=== PATIENT | male | born 1960 | race African-American/Black ===

== ENCOUNTER 2018-10-31 05:31 | Inpatient (IN) | payer MEDICAID, OTHER ==
[~2018-10-31] VITALS: Ht 170.2 cm; Wt 93.6 kg
[2018-10-31] VITALS (52 sets, daily range): BP systolic 100–152; BP diastolic 40–90
[~2018-10-31 05:31] MED LIST: LACTATED RINGERS 1,000 ML IV SCH
[2018-10-31] MEDS ORDERED: LISI40TA4 PO (05:32)
[2018-10-31] MEDS ORDERED: HYDR25TA PO (05:32)
[2018-10-31] MEDS ORDERED: OMEP20TA2 PO (05:32)
[2018-10-31] MEDS ORDERED: LIP40 PO (05:32)
[2018-10-31] MEDS ORDERED: AMLO10TA80 PO (05:32)
[2018-10-31] MEDS ORDERED: MELO-104 PO (05:32)
[2018-10-31] MEDS ORDERED: LIDOCAINE HCL 1% 20ML VIAL (Pyxis) INJ ONE (06:41)
[2018-10-31] MEDS ORDERED: GELATIN SPONGE,ABSORBABLE 12-7MM SPONGE ONE (06:41)
[2018-10-31] MEDS ORDERED: THROMBIN (BOVINE) 5000 UNITS/VIAL TOP ONE (06:42)
[2018-10-31] MEDS ORDERED: BACITRACIN 50,000 UNITS/VIAL ONE (06:42)
[2018-10-31] MEDS ORDERED: LIDOCAINE HCL/EPINEPHRINE 1%-EPI 1:100,000 20 ML VIAL ONE (06:45)
[2018-10-31] MEDS ORDERED: HYDROMORPHONE HCL/PF 2MG/ML (OR) ONE (06:52)
[2018-10-31] MEDS ORDERED: PROPOFOL 200MG/20ML VIAL IV ONE (06:52)
[2018-10-31] MEDS ORDERED: MIDAZOLAM HCL 2 MG/2 ML VIAL ONE (06:52)
[2018-10-31] MEDS ORDERED: FENTANYL CITRATE/PF 50MCG/ML 5ML VIAL ONE (06:52)
[2018-10-31] MEDS ORDERED: ROCURONIUM BROMIDE 10MG/ML VIAL 5ML IV ONE ×2 (06:52→08:09)
[2018-10-31] MEDS ORDERED: ONDANSETRON HCL 4MG/2ML INJ IV PRN (07:15)
[2018-10-31] MEDS ORDERED: DEXAMETHASONE 4MG/ML 1ML VIAL ONE (08:05)
[2018-10-31] MEDS ORDERED: CEFAZOLIN SODIUM 1000MG/VIAL ONE (08:05)
[2018-10-31] MEDS ORDERED: NEOSTIGMINE METHYLSULFATE 1MG/ML 10 ML VIAL ONE (09:07)
[2018-10-31] MEDS ORDERED: GLYCOPYRROLATE 0.2 MG/ML 2ML VIAL ONE (09:07)
[2018-10-31] MEDS ORDERED: HYDROMORPHONE HCL/PF 2MG/ML CPJ IV PRN (09:45)
[2018-10-31] MEDS ORDERED: ONDANSETRON INJ IV PRN (10:15)
[2018-10-31] MEDS ORDERED: NALOXONE INJ IV PRN (10:15)
[2018-10-31] MEDS: HYDROMORPHONE PCA 10MG/50ML IV PRN (10:28)
[2018-10-31] MEDS: DEXT 5%/LACTATED RINGERS 1,000 ML IV SCH ×2 (10:35→20:49)
[2018-10-31] MEDS: NICARDIPINE 100 MG in SODIUM CHLORIDE 0.9% 60 ML IV PRN (10:54)
[2018-10-31] MEDS: PANTOPRAZOLE SODIUM 40 MG/VIAL IV SCH (12:13)
[2018-10-31] MEDS: DEXAMETHASONE 4MG/ML 1ML VIAL IV SCH ×3 (12:13→23:19)
[2018-10-31] MEDS: DIPHENHYDRAMINE INJ IV PRN ×2 (12:13→22:38)
[2018-10-31] MEDS ORDERED: CEFAZOLIN SODIUM 1000MG/VIAL IV SCH (14:00)
[2018-10-31] MEDS: CEFAZOLIN 1000MG PREMIX 50 ML IV SCH ×2 (14:12→22:01)
[2018-10-31] MEDS ORDERED: IPRATROPIUM/ALBUTEROL 0.5-3(2.5)MG/3ML NEB HHN PRN (18:45)
[2018-10-31] MEDS: ATORVASTATIN CALCIUM 40MG TABLET PO SCH (20:49)
[2018-11-01] VITALS (84 sets, daily range): BP systolic 77–158; BP diastolic 32–95
[2018-11-01] MEDS: HYDROMORPHONE PCA 10MG/50ML IV PRN (05:25)
[2018-11-01] MEDS: DEXAMETHASONE 4MG/ML 1ML VIAL IV SCH ×4 (05:40→23:13)
[2018-11-01] MEDS: CEFAZOLIN 1000MG PREMIX 50 ML IV SCH (05:40)
[2018-11-01 06:36] LABS: HEMATOCRIT. 45.2 % (42.0-52.0); HEMOGLOBIN. 14.6 g/dL (14.0-18.0); MEAN CORPUSCULAR HEMOGLOBIN 28.9 pg (28.0-32.0); MEAN CORPUSCULAR VOLUME 89.5 fL (80.0-94.0); MEAN PLATELET VOLUME 9.3 fl (7.4-10.4); PLATELET 204 x1000/uL (130-400); RED BLOOD CELL COUNT 5.05 mill/uL (4.7-6.1); RED CELL DISTRIBUTION WIDTH 14.8 % (11.6-14.6)
[2018-11-01 06:46] LABS: CHLORIDE 103 mEq/L (98-107)
[2018-11-01 06:52] LABS: PHOSPHORUS 3.3 mg/dL (2.5-4.9)
[2018-11-01 06:53] LABS: LDL CHOLESTEROL 101 mg/dL (5-100)
[2018-11-01 06:54] LABS: HDL CHOLESTEROL 55 mg/dL (40-59)
[2018-11-01] MEDS: DEXT 5%/LACTATED RINGERS 1,000 ML IV SCH ×2 (07:02→18:15)
[2018-11-01] MEDS: DIPHENHYDRAMINE INJ IV PRN ×2 (08:05→18:46)
[2018-11-01 08:24] LABS: PLATELET ESTIMATE NORMAL
[2018-11-01] MEDS: PANTOPRAZOLE SODIUM 40 MG/VIAL IV SCH (09:39)
[2018-11-01] MEDS: DOCUSATE SODIUM 100MG CAPSULE PO SCH ×2 (09:40→17:47)
[2018-11-01] MEDS: NICARDIPINE 100 MG in SODIUM CHLORIDE 0.9% 60 ML IV PRN (12:06)
[2018-11-01] MEDS: ATORVASTATIN CALCIUM 40MG TABLET PO SCH (20:46)
[2018-11-02] VITALS (40 sets, daily range): BP systolic 105–157; BP diastolic 38–96
[2018-11-02] MEDS: DEXT 5%/LACTATED RINGERS 1,000 ML IV SCH ×3 (04:03→20:00)
[2018-11-02] MEDS: DEXAMETHASONE 4MG/ML 1ML VIAL IV SCH ×3 (05:04→17:00)
[2018-11-02 06:03] LABS: HEMATOCRIT. 43.6 % (42.0-52.0); HEMOGLOBIN. 14.2 g/dL (14.0-18.0); MEAN CORPUSCULAR HEMOGLOBIN 29.1 pg (28.0-32.0); MEAN CORPUSCULAR VOLUME 89.3 fL (80.0-94.0); MEAN PLATELET VOLUME 9.3 fl (7.4-10.4); PLATELET 201 x1000/uL (130-400); RED BLOOD CELL COUNT 4.88 mill/uL (4.7-6.1); RED CELL DISTRIBUTION WIDTH 14.8 % (11.6-14.6)
[2018-11-02 06:13] LABS: CHLORIDE 108 mEq/L (98-107)
[2018-11-02 06:22] LABS: T4 FREE 1.51 ng/dL (0.76-1.46)
[2018-11-02 08:17] LABS: PLATELET ESTIMATE NORMAL
[2018-11-02] MEDS: DOCUSATE SODIUM 100MG CAPSULE PO SCH ×2 (09:23→16:56)
[2018-11-02] MEDS: HYDROCODONE/APAP 7.5/325MG 1 TAB TABLET PO PRN ×2 (10:33→16:59)
[2018-11-02] MEDS: BISACODYL 5MG TABLET PO PRN (12:50)
[2018-11-02] MEDS ORDERED: NON FORMULARY PATIENT HOME MED XX SCH (14:30)
[2018-11-02] MEDS: OMEPRAZOLE 20MG CAPSULE EXTENDED RELEASE PO SCH (15:10)
[2018-11-02] MEDS: LACTULOSE 20G/30ML UDC PO SCH ×2 (15:10→16:59)
[2018-11-02] MEDS ORDERED: DOCUSATE SODIUM 100MG CAPSULE PO SCH (17:00)
[2018-11-02] MEDS: ATORVASTATIN CALCIUM 40MG TABLET PO SCH (21:54)
[2018-11-03] VITALS: BP 143/73
[2018-11-03 04:00] VITALS: BP 138/70
[2018-11-03 06:44] LABS: CHLORIDE 109 mEq/L (98-107)
[2018-11-03 06:49] LABS: BASOPHILS % 0.1 % (0.0-2.0); HEMATOCRIT. 41.8 % (42.0-52.0); HEMOGLOBIN. 13.6 g/dL (14.0-18.0); LYMPHOCYTES % 7.6 % (20.0-50.0); MEAN CORPUSCULAR HEMOGLOBIN 29.2 pg (28.0-32.0); MEAN CORPUSCULAR VOLUME 89.3 fL (80.0-94.0); MEAN PLATELET VOLUME 9.8 fl (7.4-10.4); NEUTROPHILS % 85.3 % (40.0-76.0); PLATELET 212 x1000/uL (130-400); RED BLOOD CELL COUNT 4.68 mill/uL (4.7-6.1); RED CELL DISTRIBUTION WIDTH 14.9 % (11.6-14.6)
[2018-11-03] MEDS: OMEPRAZOLE 20MG CAPSULE EXTENDED RELEASE PO SCH (07:15)
[2018-11-03] MEDS: DEXT 5%/LACTATED RINGERS 1,000 ML IV SCH (07:29)
[2018-11-03 08:00] VITALS: BP 142/70
[2018-11-03] MEDS: DOCUSATE SODIUM 100MG CAPSULE PO SCH (08:28)
[2018-11-03] MEDS: BISACODYL 5MG TABLET PO PRN (08:28)
[2018-11-03] MEDS: AMLODIPINE 10MG TABLET PO SCH ×2 (08:29→08:40)
[2018-11-03] MEDS: HYDROCODONE/APAP 7.5/325MG 1 TAB TABLET PO PRN (08:30)
[2018-11-03] MEDS ORDERED: LISINOPRIL 40MG TABLET PO SCH (09:00)
[2018-11-03] MEDS ORDERED: HYDROCHLOROTHIAZIDE 25MG TABLET PO SCH (09:00)
[2018-11-03 12:00] VITALS: BP 143/73
[2018-11-03 12:07] VITALS: BP 142/70
== END 2018-11-03 13:35 | disposition home or self-care (01) | DRG 23 ==
LOC: OR 05:31 → MICUSO 05:32 → 6EST 11-02 11:57
PROVIDERS: ADMIT Internal Medicine; ATTEND Neurological Surgery
PROC: 0RB30ZZ Excision of Cervical Vertebral Disc, Open Approach (ICD-10-PCS; 2018-10-31)
PROC: 0RG20A0 Fusion of 2 or more Cervical Vertebral Joints with Interbody Fusion Device, Anterior Approach, Anterior Column, Open Approach (ICD-10-PCS; principal; 2018-10-31 07:00)
DX: G95.20 Unspecified cord compression (principal); M47.12 Other spondylosis with myelopathy, cervical region; M48.02 Spinal stenosis, cervical region; R13.10 Dysphagia, unspecified; E11.9 Type 2 diabetes mellitus without complications; D72.829 Elevated white blood cell count, unspecified; E66.9 Obesity, unspecified; E05.90 Thyrotoxicosis, unspecified without thyrotoxic crisis or storm; G82.50 Quadriplegia, unspecified; E78.00 Pure hypercholesterolemia, unspecified; M54.12 Radiculopathy, cervical region; E78.5 Hyperlipidemia, unspecified; I10 Essential (primary) hypertension; M48.061 Spinal stenosis, lumbar region without neurogenic claudication; Z82.49 Family history of ischemic heart disease and other diseases of the circulatory system; G89.4 Chronic pain syndrome; F17.200 Nicotine dependence, unspecified, uncomplicated; Z68.32 Body mass index [BMI] 32.0-32.9, adult
CPT/HCPCS: 36415; 72040; 72141; 80048; 80061; 83036; 83735; 84100; 84439; 84443; 84481; 86850; 86900; 88304; 88311; 92610; 93970; 97116; 97162; 97166; 97535; C9113; J0690; J1100; J1170; J1200; J2250; J2704; J2710; J3010; J3490; J7050; J7121; L0172